=== PATIENT | female | born 1980 | race Hispanic/Latino ===

== ENCOUNTER 2021-03-02 16:08 | Emergency (ER) | payer BC ==
[2021-03-02] MEDS ORDERED: Acetaminophen 500 MG TAB ONE (16:31)
[2021-03-02 17:21] LABS: #Lymphocytes 1.3 thou/uL (1.20-3.40); #Monocytes 0.5 thou/uL (0.11-0.59); #Neutrophils 4.3 thou/uL (1.40-6.50); %Basophils 0.6 % (0.0-1.0); %Eosinophils 0.1 % (0.0-10.0); %Lymphocytes 21.7 % (21.0-51.0); %Monocytes 8.7 % (0.0-10.0); %Neutrophils 68.9 % (42.0-75.0); Hemoglobin 15.3 g/dL (12.0-16.0); Mean Corpuscular Hemoglobin 32.1 pg (27.0-31.0); Mean Corpuscular Volume 94.4 fL (78.0-98.0); Platelet Count 159 thou/uL (130-400); RBC Distribution Width 11.4 % (11.5-14.5); Red Blood Cell (RBC) Count 4.78 mill/uL (4.20-5.40); White Blood Cell (WBC) Count 6.2 thou/uL (4.8-10.8)
[2021-03-02] MEDS ORDERED: Ketorolac Tromethamine 30 MG/ML VIAL ONE (17:34)
[2021-03-02 17:45] LABS: Anion Gap 12 mmol/L (10-20); BUN (Urea Nitrogen) 7 mg/dL (7.0-18.7); Calc. Creatinine Clearance 0 mL/min (70-130); Carbon Dioxide 29 mmol/L (22-29); Chloride 98 mmol/L (98-107); Potassium 4.4 mmol/L (3.5-5.1); Sodium 135 mmol/L (136-145)
[2021-03-02 17:46] LABS: ALT (SGPT) 47 U/L (8-55); AST (SGOT) 54 U/L (5-34); Albumin 3.8 g/dL (3.5-5.0); Alkaline Phosphatase 73 U/L (40-110); Bilirubin, Total Less than 0.2 mg/dL (0.2-1.2); Calcium 8.9 mg/dL (7.8-10.44); Glucose 123 mg/dL (70-105); Protein, Total 7.8 g/dL (6.0-8.3)
== END 2021-03-02 17:05 | disposition home or self-care (01) ==
LOC: ERS 16:08
DX: U07.1 COVID-19 (principal); J12.82 Pneumonia due to coronavirus disease 2019
CPT/HCPCS: 71045; 80053; 85025; 96374; J1885

== ENCOUNTER 2022-09-22 07:37 | Outpatient (CLI) | payer OTHER | END 2022-09-22 07:38 | disposition home or self-care (01) | LOC: BICCT 07:37 | PROVIDERS: ATTEND Family Medicine | DX: E78.5 Hyperlipidemia, unspecified (principal); I25.10 Atherosclerotic heart disease of native coronary artery without angina pectoris | CPT/HCPCS: 75571 ==